=== PATIENT | male | born 1990 | race Caucasian/White ===

== ENCOUNTER 2018-02-16 21:38 | Emergency (ER) | payer MEDICAID ==
[2018-02-16] MEDS: LORAZEPAM 2 MG INJ IV (22:31)
== END 2018-02-16 23:38 | disposition home or self-care (01) ==
LOC: E/R 21:38
DX: M54.12 Radiculopathy, cervical region (principal); R51 Headache
CPT/HCPCS: 70450; 72125; 82962; 93005; 96374; 99285-25